=== PATIENT | female | born 1935 | race Caucasian/White ===

== ENCOUNTER → 2023-06-13 14:02 | Outpatient (REF) | payer OTHER, SELFPAY | LOC: HWWDC 14:02 | PROVIDERS: ATTENDING PHYSICIAN Internal Medicine | DX: Z12.31 Encounter for screening mammogram for malignant neoplasm of breast (principal) | CPT/HCPCS: 77063; 77067 ==

== ENCOUNTER → 2024-02-13 14:47 | Outpatient (REF) | payer OTHER, SELFPAY | LOC: HWRAD 14:47 | PROVIDERS: ATTENDING PHYSICIAN Internal Medicine | DX: R05.3 Chronic cough (principal) | CPT/HCPCS: 71046 ==